=== PATIENT | female | born 1995 | race Caucasian/White ===

== ENCOUNTER 2017-01-14 14:41 | Emergency (ER) | payer OTHER, SELFPAY ==
[~2017-01-14] VITALS: Ht 165.1 cm; Wt 165.5 kg
[2017-01-14 14:41] VITALS: BP 188/99
[2017-01-14] MEDS ORDERED: ZYRT10TA2 PO (17:14)
[2017-04-19] MEDS ORDERED: ELIM5CRE2 TOP (09:32)
== END 2017-01-14 17:23 | disposition home or self-care (01) ==
LOC: M ED 14:41
DX: L25.9 Unspecified contact dermatitis, unspecified cause (principal)

== ENCOUNTER 2017-06-19 23:10 | Emergency (ER) | payer SELFPAY ==
[2017-06-20] MEDS: IBUPROFEN 800 MG TAB PO (00:49)
[2017-06-20] MEDS: AUGMENTIN 875 MG TAB PO (00:49)
== END 2017-06-20 00:52 | disposition home or self-care (01) ==
LOC: M ED 23:10
DX: J03.90 Acute tonsillitis, unspecified (principal); J35.8 Other chronic diseases of tonsils and adenoids; Z79.899 Other long term (current) drug therapy; F17.210 Nicotine dependence, cigarettes, uncomplicated
CPT/HCPCS: 99282

== ENCOUNTER 2019-08-16 13:16 | Emergency (ER) | payer SELFPAY ==
[~2019-08-16] VITALS: Ht 165.1 cm; Wt 195.8 kg
[~2019-08-16 13:16] MED LIST: AUGM500T34 PO; ELIM5CRE2 TOP; ZYRT10CA5 PO
[2019-08-16] MEDS ORDERED: TYLENOL 2 TABS (13:27)
--- NOTE | 2019-08-16 14:36 | REP ---
SACRUM AND COCCYX: Three views of the sacrum and coccyx are performed. This study is extremely limited due to patient body habitus. No gross fracture or dislocation is visible. Electronically Signed by Josh Eubanks MD 08/16/2019 05:56 P
[2019-08-16 17:18] VITALS: BP 151/79
--- NOTE | 2019-08-16 17:18 | REP ---
Lumbar spine series: Five views. History: Trauma. Findings: Five views of the lumbar spine are presented. Exam quality is inhibited by patient body habitus. The lumbar vertebral body heights are preserved. Alignment is normal. Disc spaces are maintained. No fracture or collapse is seen. Pedicles and posterior elements appear intact. Sacrum and SI joints are unremarkable. Impression: No fracture seen. Electronically Signed by Evan Yeboah MD 08/16/2019 05:11 P
== END 2019-08-16 17:22 | disposition home or self-care (01) ==
LOC: M ED 13:16
DX: S33.8XXA Sprain of other parts of lumbar spine and pelvis, initial encounter (principal); W01.10XA Fall on same level from slipping, tripping and stumbling with subsequent striking against unspecified object, initial encounter; Y92.9 Unspecified place or not applicable; Y93.9 Activity, unspecified; Y99.9 Unspecified external cause status; F17.200 Nicotine dependence, unspecified, uncomplicated; Z88.0 Allergy status to penicillin

== ENCOUNTER → 2023-02-11 | Outpatient (REF) | payer SELFPAY, OTHER ==
[~2023-02-11] MED LIST changes: +TYLENOL 2 TABS
== END ==
LOC: M LAB REF 16:19
PROVIDERS: ATTEND Physician Assistant Medical
DX: J02.9 Acute pharyngitis, unspecified (principal)

== ENCOUNTER 2023-04-20 09:06 | Emergency (ER) | payer OTHER, SELFPAY ==
[~2023-04-20] VITALS: Ht 165.1 cm; Wt 230.0 kg
[2023-04-20 12:29] LABS: BASO % 0.3 % (0.0-1.0); EOS # 0.1 10^3/uL (0.0-0.5); EOS % 1.2 % (0.0-3.0); HEMOGLOBIN 13.5 g/dl (12.0-15.5); LYMPH # 2.5 10^3/uL (1.5-5.0); LYMPH % 23.9 % (24.0-44.0); MEAN CORPUSCULAR HEMOGLOBIN 32.5 pg (27.0-33.0); MEAN CORPUSCULAR HGB CONC 32.9 g/dl (32.0-36.5); MEAN CORPUSCULAR VOLUME 98.6 fl (80.0-96.0); MONO # 0.4 10^3/uL (0.0-0.8); MONO % 4.1 % (2.0-8.0); NEUTROPHILS # 7.3 10^3/uL (1.5-8.5); NEUTROPHILS % 68.3 % (36.0-66.0); PLATELET COUNT, AUTOMATED 408 10^3/uL (150-450); RED BLOOD COUNT 4.16 10^6/uL (4.00-5.40); WHITE BLOOD COUNT 10.6 10^3/uL (4.0-10.0)
[2023-04-20 12:34] LABS: ERYTHROCYTE SEDIMENTATION RATE 49 mm/hr (0-20)
[2023-04-20 12:41] LABS: INR 1.05; PROTHROMBIN TIME 13.4 SECONDS (12.5-14.5)
[2023-04-20 12:42] LABS: PARTIAL THROMBOPLASTIN TIME 27.9 SECONDS (24.8-34.2)
[2023-04-20 12:55] LABS: ALBUMIN 3.3 G/DL (3.2-5.2); ALKALINE PHOSPHATASE 46 U/L (46-116); ALT/SGPT 28 U/L (7.0-40); AST/SGOT 22 U/L (<34); BILIRUBIN,DIRECT 0.2 MG/DL (<0.4); BILIRUBIN,TOTAL 0.4 MG/DL (0.3-1.2); BLOOD UREA NITROGEN 10 MG/DL (9-23); CALCIUM LEVEL 8.7 MG/DL (8.5-10.1); CARBON DIOXIDE LEVEL 27 MMOL/L (20-31); CHLORIDE LEVEL 104 MMOL/L (98-107); CREATININE FOR GFR 0.54 MG/DL (0.55-1.30); GLOMERULAR FILTRATION RATE > 60.0 (>60); GLUCOSE, FASTING 166 MG/DL (60-100); POTASSIUM SERUM 4.1 MMOL/L (3.5-5.1); SODIUM LEVEL 140 MMOL/L (136-145); TOTAL PROTEIN 6.8 G/DL (5.7-8.2)
[2023-04-20] MEDS ORDERED: cefTRIAXone SOD 1 GM in D5W MINI-BAG PLUS 50 ML IV ONE (13:15)
[2023-04-20] MEDS ORDERED: CEPH500C PO (13:17)
[2023-04-20 14:23] VITALS: BP 156/98; TEMP 97.4; O2SAT 98
== END 2023-04-20 14:29 | disposition home or self-care (01) ==
LOC: M ED 09:06
DX: L03.115 Cellulitis of right lower limb (principal); L08.9 Local infection of the skin and subcutaneous tissue, unspecified; E66.9 Obesity, unspecified; F17.200 Nicotine dependence, unspecified, uncomplicated; Z79.2 Long term (current) use of antibiotics
CPT/HCPCS: 80048; 80076; 83605; 85025; 85610; 85652; 85730; 86140; 87040; 93971; 96365; 99283; J0696